=== PATIENT | male | born 1990 | race American Indian/Alaskan Native ===

== ENCOUNTER 2018-03-04 12:23 | Emergency (ER) | payer MEDICAID ==
[2018-03-04 12:43] VITALS: BP 126/81; PULSE 74; TEMP 99.4; O2SAT 99
--- NOTE | 2018-03-04 12:48 | C.PDOC ---
History Of Present Illness 27 year old male presents to the emergency department with complaints of redness and itchiness to his eyes, right greater than left, for the last four days. Patient denies eye pain, visual disturbances, fever, and chills. Patient reports that he wears glasses and does not wear contact lenses. He is unsure regarding sick contact. Time Seen by Provider: 03/04/18 12:45 Chief Complaint (Nursing): Eye Problem History Per: Patient History/Exam Limitations: no limitations Onset/Duration Of Symptoms: Days (4) Current Symptoms Are (Timing): Still Present Quality: denies: "Pain" Associated Symptoms: denies: Pain, Decreased Vision, Discharge From Eye Past Medical History Reviewed: Historical Data, Nursing Documentation, Vital Signs Vital Signs: Last Vital Signs Temp 99.4 F 03/04/18 12:40 Pulse 74 03/04/18 12:40 Resp 20 03/04/18 12:40 BP 126/81 03/04/18 12:40 Pulse Ox 99 03/04/18 12:40 - Medical History PMH: No Chronic Diseases Surgical History: No Surg Hx Family History: States: No Known Family Hx - Social History Hx Alcohol Use: No Hx Substance Use: No - Immunization History Hx Tetanus Toxoid Vaccination: No Review Of Systems Except As Marked, All Systems Reviewed And Found Negative. Constitutional: Negative for: Fever, Chills Eyes: Positive for: Redness. Negative for: Pain, Vision Change Physical Exam - Physical Exam Appears: Non-toxic, No Acute Distress Skin: Normal Color, Warm, Dry Head: Atraumatic, Normacephalic Eye(s): bilateral: Other (conjunctival injection, right greater than left. Debris present on lashes. ) Nose: Normal Oral Mucosa: Moist Neck: Normal, Supple Neurological/Psych: Oriented x3, Normal Speech, Normal Cognition ED Course And Treatment O2 Sat by Pulse Oximetry: 99 (RA) Pulse Ox Interpretation: Normal Disposition Counseled Patient/Family Regarding: Diagnosis, Need For Followup - Disposition Disposition: HOME/ ROUTINE Disposition Time: 13:04 Additional Instructions: FARRUKH DANG, thank you for letting us take care of you today. Your provider was Gris Baldwin MD and you were treated for EYE PROBLEM. The emergency medical care you received today was directed at your acute symptoms. If you were prescribed any medication, please fill it and take as directed. It may take several days for your symptoms to resolve. Return to the Emergency Department if your symptoms worsen, do not improve, or if you have any other problems. Please contact your doctor in 1-2 days for a follow up visit. Bring any paperwork you were given at discharge with you along with any medications you are taking to your follow up visit. Our treatment cannot replace ongoing medical care by a primary care provider outside of the emergency department. Thank you for allowing the [facility] team to be part of your care today. Prescriptions: Polymyxin/Trimethoprim Sulfate [Polytrim Ophth Soln] 1 drop OU Q3H #1 bottle Instructions: Conjunctivitis ([place]) (DC), How to Use Eye Drops Forms: [employer] (Pashto), Work Excuse - POA Present On Arrival: None - Clinical Impression Clinical Impression: Conjunctivitis - Scribe Statement The provider has reviewed the documentation as recorded by the Scribe (Remington Bryant) Provider Attestation: All medical record entries made by the Scribe were at my direction and personally dictated by me. I have reviewed the chart and agree that the record accurately reflects my personal performance of the history, physical exam, medical decision making, and the department course for this patient. I have also personally directed, reviewed, and agree with the discharge instructions and disposition.
[2018-03-04 13:42] VITALS: RESP 18
== END 2018-03-04 13:41 | disposition home or self-care (01) ==
LOC: C.ER 12:23
DX: H10.9 Unspecified conjunctivitis (principal)

== ENCOUNTER 2018-03-21 16:03 | Emergency (ER) | payer MEDICAID ==
[2018-03-21 16:09] VITALS: BP 122/73; PULSE 63; RESP 16; TEMP 98.3; O2SAT 100
[2018-03-21] MEDS ORDERED: Albuterol-Ipratrop 3 mg / 0.5 (3 ml) UD IH STA (16:28)
[2018-03-21] MEDS ORDERED: Albuterol-Ipratrop 3 mg / 0.5 (3 ml) UD ONE (16:42)
--- NOTE | 2018-03-21 17:08 | RAD ---
HISTORY: Productive cough COMPARISON: None available TECHNIQUE: Chest PA and lateral FINDINGS: LUNGS: No focal consolidation. Please note that chest x-ray has limited sensitivity for the detection of pulmonary masses. PLEURA: No significant pleural effusion identified. No definite pneumothorax . CARDIOVASCULAR: The cardiomediastinal silhouette appears within normal limits of size. No atherosclerotic calcification present. OSSEOUS STRUCTURES: No acute osseous abnormality identified. VISUALIZED UPPER ABDOMEN: Unremarkable. OTHER FINDINGS: None. IMPRESSION: No focal consolidation.
--- NOTE | 2018-03-21 17:23 | C.PDOC ---
Time Seen by Provider: 03/21/18 16:25 Chief Complaint (Nursing): Cough, Cold, Congestion History Per: Patient Onset/Duration Of Symptoms: Days (weeks) Current Symptoms Are (Timing): Still Present Associated Symptoms: Cough, Sputum Severity: Moderate Additional History Per: Prior Records Past Medical History Reviewed: Historical Data, Nursing Documentation, Vital Signs Vital Signs: Last Vital Signs Temp 98.3 F 03/21/18 16:06 Pulse 63 03/21/18 16:06 Resp 16 03/21/18 16:06 BP 122/73 03/21/18 16:06 Pulse Ox 100 03/21/18 16:06 - Medical History PMH: Asthma, Bronchitis Family History: States: Unknown Family Hx - Social History Hx Tobacco Use: Yes (quit a few weeks ago) Hx Alcohol Use: No Hx Substance Use: No - Immunization History Hx Tetanus Toxoid Vaccination: No Review Of Systems Except As Marked, All Systems Reviewed And Found Negative. Constitutional: Negative for: Fever, Weakness ENT: Negative for: Nose Congestion, Throat Pain Cardiovascular: Negative for: Chest Pain Respiratory: Positive for: Cough, Sputum Gastrointestinal: Negative for: Vomiting, Abdominal Pain Musculoskeletal: Negative for: Neck Pain Skin: Negative for: Rash Neurological: Negative for: Weakness Physical Exam - Physical Exam Appears: Non-toxic, No Acute Distress Skin: Normal Color, Warm, Dry, No Rash Head: Atraumatic, Normacephalic Eye(s): bilateral: Normal Inspection, PERRL, EOMI Neck: Normal ROM, Supple Cardiovascular: Rhythm Regular Respiratory: No Accessory Muscle Use, Wheezing Gastrointestinal/Abdominal: Soft, No Tenderness Extremity: Normal ROM, No Pedal Edema, No Calf Tenderness Neurological/Psych: Oriented x3, Normal Speech, Normal Motor, Normal Sensation ED Course And Treatment O2 Sat by Pulse Oximetry: 100 Pulse Ox Interpretation: Normal - Radiology CXR: Viewed By Me, Read By Radiologist CXR Interpretation: Yes: No Acute Disease Progress - Interventions Interventions:: Observation - Medications Administered Oral: Corticosteriod Inhaled nebulized: Anticholinergic, Beta-2 agonist - Data Reviewed Data Reviewed: Diagnostic imaging, Old records - Patient Status Patient status: Mostly improved - Continuity of Care Discussed patient case with:: Patient, ED Nurse - Patient Plan Patient Plan: Discharge, F/U with PCP Disposition Counseled Patient/Family Regarding: Studies Performed, Diagnosis, Need For Followup, Rx Given, Smoking Cessation - Disposition Referrals: Suze Sy MD [Non-Staff] - Disposition: HOME/ ROUTINE Disposition Time: 17:25 Condition: STABLE Additional Instructions: Follow up with your doctor. Return to the ER if you develop shortness of breath, chest pain, fever, worsening of symptoms or if you have any other concerns. Prescriptions: Albuterol HFA [Ventolin HFA 90 mcg/actuation (8 g)] 2 puff IH Q4 PRN #1 unit PRN Reason: Wheezing Azithromycin [Zithromax] 1 dose PO DAILY #1 pkt predniSONE [predniSONE Tab] 2 tab PO DAILY #8 tab Instructions: Acute Bronchitis, Adult (DC) - Clinical Impression Clinical Impression: Acute wheezy bronchitis
== END 2018-03-21 17:44 | disposition home or self-care (01) ==
LOC: C.ER 16:03
DX: J20.9 Acute bronchitis, unspecified (principal)

== ENCOUNTER 2018-04-04 11:17 | Emergency (ER) | payer MEDICAID ==
[2018-04-04 13:15] LABS: BASO % 0.4 % (0.0-2.0); EOS # 0.1 K/uL (0.0-0.7); EOS % 0.8 % (0.0-4.0); HEMOGLOBIN 15.1 g/dL (12.0-18.0); MEAN CELL VOLUME 90.4 fL (80.0-94.0); MEAN CORPUSCULAR HEMOGLOBIN 30.1 pg (27.0-31.0); MEAN CORPUSCULAR HGB CONC 33.2 g/dL (33.0-37.0); MEAN PLATELET VOLUME 9.4 fL (7.2-11.7); MONO # 0.5 K/uL (0.0-0.8); MONO % 7.4 % (0.0-10.0); NEUT # 4.4 K/uL (1.8-7.0); NEUT % 62.4 % (50.0-75.0); RBC 5.03 Mil/uL (4.40-5.90); RED CELL DISTRIBUTION WIDTH 14.9 % (11.5-14.5)
[2018-04-04 13:20] LABS: URINE BACTERIA OCC (<OCC); URINE BILIRUBIN NEGATIVE (NEGATIVE); URINE BLOOD NEGATIVE (NEGATIVE); URINE CLARITY Clear (Clear); URINE COLOR Yellow (YELLOW); URINE GLUCOSE (UA) NORMAL (Normal); URINE LEUKOCYTE ESTERASE NEG Leu/uL (Negative); URINE PROTEIN 1+ mg/dL (NEGATIVE)
[2018-04-04 13:35] LABS: ALB/GLOB RATIO 1.5 (1.0-2.1); ALBUMIN 4.8 g/dL (3.5-5.0); ALT/SGPT 24 U/L (21-72); AST/SGOT 21 U/L (17-59); BLOOD UREA NITROGEN 11 mg/dL (9-20); CALCIUM 9.8 mg/dl (8.6-10.4); GFR NON-AFRICAN AMERICAN > 60; LIPASE 43 U/L (23-300)
[2018-04-04] MEDS ORDERED: cefTRIAXone 250 MG, Lidocaine Hydrochloride 1% 1 ML IM ONE (13:56)
--- NOTE | 2018-04-04 14:00 | C.PDOC ---
History Of Present Illness 27 y/o male presents to the ER complaining of periumbilical abdominal pain which has been present for the past 2 days. Patient states that the pain is constant and non-radiating. Patient describes the pain as "squeezing." Denies having fever, chills, nausea,vomiting, diarrhea,dysuria, and hematuria. Time Seen by Provider: 04/04/18 11:28 Chief Complaint (Nursing): Abdominal Pain History Per: Patient History/Exam Limitations: no limitations Onset/Duration Of Symptoms: Days Current Symptoms Are (Timing): Still Present Severity: Moderate Past Medical History Reviewed: Historical Data, Nursing Documentation, Vital Signs Vital Signs: Last Vital Signs Temp 98.5 F 04/04/18 11:20 Pulse 69 04/04/18 11:20 Resp 17 04/04/18 11:20 BP 128/78 04/04/18 11:20 Pulse Ox 100 04/04/18 11:20 - Medical History PMH: Asthma, Bronchitis Surgical History: No Surg Hx Family History: States: No Known Family Hx - Social History Hx Tobacco Use: Yes (quit a few weeks ago) Hx Alcohol Use: No Hx Substance Use: No - Immunization History Hx Tetanus Toxoid Vaccination: No Hx Influenza Vaccination: No Hx Pneumococcal Vaccination: No Review Of Systems Except As Marked, All Systems Reviewed And Found Negative. Constitutional: Negative for: Fever, Chills Gastrointestinal: Positive for: Abdominal Pain. Negative for: Nausea, Vomiting, Diarrhea Genitourinary: Negative for: Dysuria, Hematuria Physical Exam - Physical Exam Appears: Non-toxic, No Acute Distress Skin: Normal Color, Warm, Dry Head: Atraumatic, Normacephalic Eye(s): bilateral: Normal Inspection Nose: Normal Oral Mucosa: Moist Neck: Supple Chest: Symmetrical Cardiovascular: Rhythm Regular Respiratory: Normal Breath Sounds, No Rales, No Rhonchi, No Wheezing Gastrointestinal/Abdominal: Soft, Tenderness (epigastric and periumbilical tenderness), No Guarding, No Rebound, Other (negative Horner's, negative M cBurney's) Neurological/Psych: Oriented x3, Normal Speech ED Course And Treatment - Laboratory Results Result Diagrams: 04/04/18 13:06 04/04/18 13:06 Lab Results: Total Bilirubin 0.7 mg/dL (0.2-1.3) 04/04/18 13:06 AST 21 U/L (17-59) 04/04/18 13:06 ALT 24 U/L (21-72) 04/04/18 13:06 Alkaline Phosphatase 59 U/L (38-126) 04/04/18 13:06 Total Protein 8.1 g/dL (6.3-8.3) 04/04/18 13:06 Albumin 4.8 g/dL (3.5-5.0) 04/04/18 13:06 Globulin 3.3 gm/dL (2.2-3.9) 04/04/18 13:06 Albumin/Globulin Ratio 1.5 (1.0-2.1) 04/04/18 13:06 Lipase 43 U/L (23-300) 04/04/18 13:06 Urine Color Yellow (YELLOW) 04/04/18 13:06 Urine Clarity Clear (Clear) 04/04/18 13:06 Urine pH 6.0 (5.0-8.0) 04/04/18 13:06 Ur Specific [place] 1.025 (1.003-1.030) 04/04/18 13:06 Urine Protein 1+ mg/dL (NEGATIVE) H 04/04/18 13:06 Urine Glucose (UA) Normal mg/dL (Normal) 04/04/18 13:06 Urine Ketones Negative mg/dL (NEGATIVE) 04/04/18 13:06 Urine Blood Negative (NEGATIVE) 04/04/18 13:06 Urine Nitrate Negative (NEGATIVE) 04/04/18 13:06 Urine Bilirubin Negative (NEGATIVE) 04/04/18 13:06 Urine Urobilinogen 2.0 mg/dL (0.2-1.0) 04/04/18 13:06 Ur Leukocyte Esterase Neg Val/uL (Negative) 04/04/18 13:06 Urine WBC (Auto) 1 /hpf (0-5) 04/04/18 13:06 Urine RBC (Auto) 1 /hpf (0-3) 04/04/18 13:06 Urine Bacteria Occ (<OCC) H 04/04/18 13:06 O2 Sat by Pulse Oximetry: 100 (RA) Pulse Ox Interpretation: Normal Progress Note: Labs and UA ordered. Patient treated with Protonix IV and Zithro max PO. Disposition Counseled Patient/Family Regarding: Studies Performed, Diagnosis, Need For Followup, Rx Given - Disposition Referrals: Serafin Sr MD [Staff Provider] - Disposition: HOME/ ROUTINE Disposition Time: 14:00 Condition: STABLE Additional Instructions: FOLLOW UP WITH GI SPECIALIST WITHIN 1 WEEK USE MEDICATION DAILY RETURN TO ER IF SYMPTOMS WORSEN Prescriptions: Pantoprazole [Protonix EC Tab] 20 mg PO DAILY #30 ect Instructions: Acute Abdomen (Belly Pain), Adult (DC), Urethritis (DC) Forms: [employer] (Tongan) Print Language: DANISH - Clinical Impression Clinical Impression: Epigastric abdominal pain, Urethritis - Scribe Statement The provider has reviewed the documentation as recorded by the Lázaroibe Uli Beltrán Provider Attestation: All medical record entries made by the Lázaroibe were at my direction and personally dictated by me. I have reviewed the chart and agree that the record accurately reflects my personal performance of the history, physical exam, medical decision making, and the department course for this patient. I have also personally directed, reviewed, and agree with the discharge instructions and disposition.
[2018-04-04 14:42] VITALS: BP 135/77; PULSE 65; RESP 19; TEMP 98; O2SAT 97
== END 2018-04-04 14:53 | disposition home or self-care (01) ==
LOC: C.ER 11:17
DX: R10.13 Epigastric pain (principal); N34.2 Other urethritis
CPT/HCPCS: 80053; 81001; 83690; 85025; 87491; 87591; 96372; 96374; 99284; C9113; J0696